=== PATIENT | male | born 1940 | race Caucasian/White ===

== ENCOUNTER 2017-07-30 12:14 | Inpatient (IN) | payer OTHER, BC ==
[~2017-07-30] VITALS: Ht 152.4 cm; Wt 54.3 kg
[~2017-07-30 12:14] MED LIST: ESCITALOPRAM OX20 MG PO; LISINOPRIL-HCT1 EAC3 PO; LO-DOSE ASPIRIN81 M2 PO
[2017-07-30] MEDS ORDERED: HYDROCODON-ACE1 EAC7 PO (14:17)
[2017-07-30] MEDS ORDERED: LOVENOX40 MG/0.4 SC (14:17)
[2017-07-30 15:36] VITALS: BP 126/67
[2017-07-30] MEDS ORDERED: ROBAXIN500 MG PO (17:23)
[2017-07-30 23:28] VITALS: BP 119/61
[2017-07-31 05:58] VITALS: BP 130/72
[2017-07-31 06:59] LABS: HEMATOCRIT 30.9 % (38.0-50.0); MCHC 33.3 G/DL (30.0-36.0); MCV 90.1 FL (86-99); MEAN PLAT.VOLUME 10.3 uM^3 (9.0-12.4); PLATELET COUNT 150 K/uL (156-360); RBC DIS.WIDTH-CV 13.1 % (11.8-14.6); RBC DIS.WIDTH-SD 42.8 % (39-53); WHITE BLOOD COUNT 5.6 K/uL (4.1-10.2)
[2017-07-31 07:09] LABS: RED BLOOD COUNT 3.43 M/uL (4.00-5.50)
[2017-07-31 07:23] LABS: ALKALINE PHOSPHATASE 41 IU/L (3-129); ANION GAP 9 MEQ/L (2-14); CHLORIDE 104 MEQ/L (99-109); GFR ESTIMATE (CALCULATED) > 59 mL/min/; GLUCOSE 105 mg/dL (70-99); POTASSIUM 3.7 MEQ/L (3.7-5.4); SAMPLE HEMOLYSIS CHECK 0; SAMPLE ICTERIC CHECK 0; SAMPLE LIPEMIA CHECK 0; SODIUM 142 MEQ/L (136-147); TOTAL BILIRUBIN 0.7 MG/DL (0.0-1.0); UREA NITROGEN (BUN) 19 mg/dL (9-23)
[2017-07-31 15:10] VITALS: BP 116/60
[2017-08-01 05:30] VITALS: BP 115/67
[2017-08-01 07:30] VITALS: BP 129/69
[2017-08-01 15:45] VITALS: BP 124/68
[2017-08-02 05:57] VITALS: BP 124/68
[2017-08-02 07:05] VITALS: BP 120/68
[2017-08-02 16:12] VITALS: BP 128/73
[2017-08-03 05:20] VITALS: BP 136/74
[2017-08-03 16:05] VITALS: BP 123/71
[2017-08-04 06:10] VITALS: BP 136/71
[2017-08-04 16:06] VITALS: BP 126/67
[2017-08-05 05:35] VITALS: BP 116/65
[2017-08-05 15:35] VITALS: BP 124/70
[2017-08-06 06:02] VITALS: BP 120/63
[2017-08-06] MEDS ORDERED: AMBIEN5 MG PO (06:40)
[2017-08-06 11:08] VITALS: BP 98/57
[2017-08-06 13:20] VITALS: BP 101/63
[2017-08-06 15:35] VITALS: BP 97/59
[2017-08-06 20:22] VITALS: BP 113/55
[2017-08-07 05:37] VITALS: BP 155/77
[2017-08-07 15:52] VITALS: BP 117/56
[2017-08-08 04:59] VITALS: BP 103/58
[2017-08-08 07:15] VITALS: BP 127/66
[2017-08-08 15:17] VITALS: BP 109/61
[2017-08-09 04:42] VITALS: BP 121/66
[2017-08-09 07:01] VITALS: BP 127/72
[2017-08-09 16:00] VITALS: BP 127/74
[2017-08-10 05:45] VITALS: BP 120/66
[2017-08-10 15:03] VITALS: BP 128/60
[2017-08-11 06:09] VITALS: BP 121/75
[2017-08-11 15:45] VITALS: BP 131/65
[2017-08-12 05:06] VITALS: BP 112/62
[2017-08-12 15:45] VITALS: BP 119/68
[2017-08-13 06:34] VITALS: BP 107/60
[2017-08-13 15:37] VITALS: BP 127/70
[2017-08-14 04:41] VITALS: BP 113/67
[2017-08-14 15:53] VITALS: BP 110/60
[2017-08-15 05:19] VITALS: BP 100/58
[2017-08-15 16:14] VITALS: BP 97/50
[2017-08-16 05:43] VITALS: BP 102/59
[2017-08-16 15:18] VITALS: BP 120/66
[2017-08-17 05:04] VITALS: BP 100/58
[2017-08-17 15:46] VITALS: BP 109/58
[2017-08-18 04:31] VITALS: BP 101/57
[2017-08-18 15:39] VITALS: BP 105/59
[2017-08-19 06:07] VITALS: BP 115/71
[2017-08-19 15:29] VITALS: BP 117/68
[2017-08-20 06:46] VITALS: BP 109/55
[2017-08-20 15:18] VITALS: BP 114/62
[2017-08-21 05:17] VITALS: BP 113/55
[2017-08-21 15:33] VITALS: BP 120/68
[2017-08-22 04:48] VITALS: BP 108/60; BP 94/55
[2017-08-22 07:12] VITALS: BP 110/68
[2017-08-22 15:54] VITALS: BP 109/60
[2017-08-23 05:23] VITALS: BP 113/55
[2017-08-23 07:21] VITALS: BP 125/74
[2017-08-23] MEDS ORDERED: SENNA PLUS TAB1 EACH PO (11:58)
[2017-08-23] MEDS ORDERED: THERAGRAN1 TABLET PO (11:58)
[2017-08-23] MEDS ORDERED: POLYETHYLENE GL17 GM PO (11:58)
[2017-08-23] MEDS ORDERED: ROBAXIN500 MG PO (11:58)
[2017-08-23] MEDS ORDERED: ASCORBIC ACID500 M3 PO (11:58)
[2017-08-23] MEDS ORDERED: LOVENOX40 MG/0.4 SC (11:58)
[2017-08-23] MEDS ORDERED: FOLIC ACID1 MG PO (11:58)
[2017-08-23] MEDS ORDERED: DOCUSATE SODIU100 MG PO (11:58)
== END 2017-08-23 15:15 | disposition home health service (06) | DRG 93 ==
LOC: 3WEST 12:14 → ENPENDDIS 08-23 → 3WEST 08-23 15:15
PROVIDERS: Psychiatry & Neurology Neurology
PROC: F07M7ZZ Manual Therapy Techniques Treatment of Musculoskeletal System - Whole Body (ICD-10-PCS; principal; 2017-07-30)
DX: R26.89 Other abnormalities of gait and mobility (principal); S76.119A Strain of unspecified quadriceps muscle, fascia and tendon, initial encounter; S82.841A Displaced bimalleolar fracture of right lower leg, initial encounter for closed fracture; I10 Essential (primary) hypertension; D64.9 Anemia, unspecified; F32.9 Major depressive disorder, single episode, unspecified; Z82.3 Family history of stroke; Z86.13 Personal history of malaria; Z89.021 Acquired absence of right finger(s); Z79.82 Long term (current) use of aspirin
CPT/HCPCS: 73610; 80053; 85027; 97110 GO; 97530 GP; J1170; J1650

== ENCOUNTER → 2017-08-06 | Day surgery (SDC) | payer OTHER, BC ==
[~2017-08-06] VITALS: Ht 170.2 cm; Wt 76.0 kg
[~2017-08-06] MED LIST changes: +AMBIEN5 MG PO; +HYDROCODON-ACE1 EAC7 PO; +LOVENOX40 MG/0.4 SC; +ROBAXIN500 MG PO
[2017-08-06 06:56] VITALS: BP 123/72
== END ==
LOC: SDC 06:34
PROC: 0QSG04Z Reposition Right Tibia with Internal Fixation Device, Open Approach (ICD-10-PCS; principal; 2017-08-06)
PROC: 0QSJ04Z Reposition Right Fibula with Internal Fixation Device, Open Approach (ICD-10-PCS; principal; 2017-08-06)
DX: S82.841A Displaced bimalleolar fracture of right lower leg, initial encounter for closed fracture (principal); I10 Essential (primary) hypertension; Z86.13 Personal history of malaria; Z79.82 Long term (current) use of aspirin; W54.8XXA Other contact with dog, initial encounter
CPT/HCPCS: 73610; 76000; C1713; J0131; J0690; J1100; J1170; J2250; J2405; J2710; J3010